=== PATIENT | male | born 1985 | race Caucasian/White ===

== ENCOUNTER 2019-09-03 13:23 | Emergency (ER) | payer MEDICAID, OTHER ==
[~2019-09-03] VITALS: Ht 188 cm; Wt 100.0 kg
[2019-09-03 14:34] LABS: CLARITY,URINE CLEAR (Clear); COLOR,URINE YELLOW (Yellow); GLUCOSE, URINE NEGATIVE (Neg); KETONES,URINE NEGATIVE (Neg); LEUKOCYTE ESTERASE ,URINE NEGATIVE (Neg); NITRITES, URINE NEGATIVE (Neg); OCCULT BLOOD,URINE NEGATIVE (Neg); PROTEIN,URINE TRACE mg/dl (Neg)
[2019-09-03 14:40] LABS: UA COLLECTION TYPE VOIDED
[2019-09-03 14:41] LABS: BACTERIA,URINE FEW /HPF (Neg); MUCUS STRANDS MODERATE /LPF (Neg); RBC,URINE NONE SEEN /HPF (0-2); SPERM FEW /HPF (NEGATIVE); SQUAMOUS EPITHELIAL CELL,UR NONE SEEN /LPF (FEW)
[2019-09-03] MEDS ORDERED: NITR100C6 PO (15:19)
[2019-09-03 15:41] VITALS: BP 134/85
[2019-09-04] MEDS ORDERED: DIPH25CA83 PO (11:17)
[2019-09-04] MEDS ORDERED: CEPH250T PO (11:17)
[2019-09-04] MEDS ORDERED: IBUP-1984 PO (11:17)
== END 2019-09-03 15:42 | disposition home or self-care (01) ==
LOC: ER 13:24
DX: N39.0 Urinary tract infection, site not specified (principal); Z79.899 Other long term (current) drug therapy
CPT/HCPCS: 81001; 87088; 99283

== ENCOUNTER 2019-09-04 10:14 | Emergency (ER) | payer MEDICAID, OTHER ==
[~2019-09-04] VITALS: Ht 188 cm; Wt 97.5 kg
[~2019-09-04 10:14] MED LIST: NITR100C6 PO
[2019-09-04 10:25] VITALS: BP 147/86
[2019-09-04] MEDS ORDERED: IBUP-1984 PO (11:17)
[2019-09-04] MEDS ORDERED: DIPH25CA83 PO (11:17)
[2019-09-04] MEDS ORDERED: CEPH250T PO (11:17)
== END 2019-09-04 11:30 | disposition home or self-care (01) ==
LOC: ER 10:15
DX: R22.0 Localized swelling, mass and lump, head (principal); Z79.2 Long term (current) use of antibiotics; Z79.899 Other long term (current) drug therapy
CPT/HCPCS: 99283

== ENCOUNTER 2021-02-08 09:49 | Emergency (ER) | payer MEDICAID, OTHER ==
[~2021-02-08] VITALS: Ht 188 cm; Wt 97.7 kg
[~2021-02-08 09:49] MED LIST changes: +DIPH25CA83 PO
[2021-02-08 11:00] VITALS: BP 149/89
[2021-02-08] MEDS ORDERED: dexamethasone 4mg tablet PO ONE (11:25)
[2021-02-08] MEDS ORDERED: SUMAtriptan succ. 6 MG/0.5ml vial SQ ONE (11:25)
[2021-02-08] MEDS ORDERED: proCHLORperazine 10mg tablet PO ONE (11:25)
[2021-02-08] MEDS ORDERED: PROC5TAB56 PO (11:58)
[2021-02-08] MEDS ORDERED: METH-797 PO (11:58)
[2021-02-08] MEDS ORDERED: SUMA25TA35 PO (11:58)
--- NOTE | 2021-02-08 13:18 | NUR ---
Pt given and understands d/c instructions. Ambulatory with a steady gait.
== END 2021-02-08 13:26 | disposition home or self-care (01) ==
LOC: ER 09:50
DX: S29.019A Strain of muscle and tendon of unspecified wall of thorax, initial encounter (principal); F07.81 Postconcussional syndrome; R51.9 Headache, unspecified; R11.10 Vomiting, unspecified; R25.2 Cramp and spasm; Z79.899 Other long term (current) drug therapy; V89.2XXA Person injured in unspecified motor-vehicle accident, traffic, initial encounter; Y93.89 Activity, other specified; Y92.89 Other specified places as the place of occurrence of the external cause; Y99.8 Other external cause status
CPT/HCPCS: 70450; 99284; Q0164